=== PATIENT | female | born 1970 | race Caucasian/White ===

== ENCOUNTER 2020-01-29 05:00 | Emergency (ER) | payer MEDICAID ==
[~2020-01-29] VITALS: Ht 157.5 cm; Wt 64.0 kg
[2020-01-29 05:04] VITALS: BP 131/79
[2020-01-29] MEDS ORDERED: KETOROLAC 15 MG/ML VIAL IVP ONE (05:20)
[2020-01-29] MEDS ORDERED: NACL 0.9% 1,000 ML IV ONE (05:20)
[2020-01-29] MEDS ORDERED: ONDANSETRON 4 MG/2 ML VIAL IVP ONE (05:20)
[2020-01-29] MEDS ORDERED: MORPHINE SULFATE 4 MG/ML SYR IVP ONE (05:40)
[2020-01-29] MEDS ORDERED: metroNIDAZOLE 500 MG/NS PREMIX 100 ML IV ONE (05:40)
--- NOTE | 2020-01-29 05:40 | NUR ---
49 yo thai speaking female ambulated to bed 7 from triage with c/o epigastric to right sided abdominal pain which radiates toward right flank x 8 hours. much facial grimacing is noted. pain is rated 9/10. GI: abdomen soft round and tender with active bowel sounds x 4. Denies vomiting, denies blood in stool or urine PMH : Denies NKDA
[2020-01-29 06:05] LABS: BASOPHILS % (AUTO) 0.3 % (0.0-2.0); EOSINOPHILS # (AUTO) 0.1 K/uL (0-0.4); EOSINOPHILS % (AUTO) 0.9 % (0.0-4.0); HEMATOCRIT 37.9 % (36-48); HEMOGLOBIN 13.1 g/dL (12.0-16.0); LYMPHOCYTES # (AUTO) 1.1 K/uL (2.5-16.5); LYMPHOCYTES % (AUTO) 11.6 % (20.5-51.1); MEAN CORPUSCULAR HEMOGLOBIN 32 pg (27-31); MEAN CORPUSCULAR HGB CONC 35 g/dL (33-37); MEAN CORPUSCULAR VOLUME 93.4 fL (80-94); MONOCYTES # (AUTO) 0.4 K/uL (0.8-1.0); NEUTROPHILS % (AUTO) 83.2 % (42.2-75.2); PLATELET COUNT (AUTO) 220 K/uL (140-450); RED BLOOD CELL COUNT(AUTO) 4.05 MIL/uL (4.20-5.40); RED CELL DISTRIBUTION WIDTH 13.7 % (11.6-13.7); WHITE BLOOD COUNT (AUTO) 9.7 K/uL (4.8-10.8)
[2020-01-29 06:11] LABS: ANION GAP 11.7 (8-16); CARBON DIOXIDE 27.8 mmol/L (21-32); CREATININE 0.7 mg/dL (0.6-1.3); POTASSIUM 3.5 mmol/L (3.5-5.1)
[2020-01-29] MEDS ORDERED: cefTRIAXone 1,000 MG VIAL ONE (06:21)
[2020-01-29 06:23] LABS: ALBUMIN 3.8 g/dL (3.4-5.0); TOTAL BILIRUBIN 0.3 mg/dL (0.0-1.0)
--- NOTE | 2020-01-29 06:34 | NUR ---
covid swab antigen obtained, left nares and sent to lab. US at bedside for exam
--- NOTE | 2020-01-29 06:41 | NUR ---
Pt refused zofran and morphine
--- NOTE | 2020-01-29 07:14 | NUR ---
REPORT RECEIVED FROM GRETEL HINOJOSA. TX OF CARE AT THIS TIME.
--- NOTE | 2020-01-29 07:14 | NUR ---
tPt report given to ramirez padgett. Transfer of care at this time.
[2020-01-29 08:36] VITALS: BP 125/74
--- NOTE | 2020-01-29 08:36 | NUR ---
Patient discharged with v/s stable. Written and verbal after care instructions given and explained. Patient verbalized understanding. Ambulatory with steady gait. All questions addressed prior to discharge. Advised to follow up with PMD.
== END 2020-01-29 08:36 | disposition home or self-care (01) ==
LOC: MED 05:00
DX: K81.9 Cholecystitis, unspecified (principal); R10.84 Generalized abdominal pain
CPT/HCPCS: 36415; 76705; 80053; 81002; 81025; 83690; 85025; 87040; 87426; 96365; 96368; 96375; 99284; J0696; J1885; J3490; J7030; Q0092; J2405